=== PATIENT | female | born 1975 | race Caucasian/White ===

== ENCOUNTER 2019-11-06 11:06 | Inpatient (IN) | payer OTHER ==
[2019-11-06] MEDS ORDERED: ALBUTEROL NEBULIZED 2.5 MG/3 ML INHALATION STA ×2 (11:37→12:58)
[2019-11-06] MEDS ORDERED: methylPREDNISolone SOD SUCCI 125 MG/2 ML VIAL IM ONE (11:39)
--- NOTE | 2019-11-06 11:55 | ED ---
URI HPI - General Chief Complaint: Upper Respiratory Infection Stated Complaint: cough, SOB, breathing difficulties Time Seen by Provider: 11/06/19 11:21 Source: patient Mode of arrival: ambulatory Limitations: no limitations - History of Present Illness Initial Comments: 44-year-old female with history of asthma presents emergency department today for chief complaint of cough shortness of breath. Patient states that she has had cough and torsemide past 13 days. Patient states he does travel a lot for work however has not been to endemic areas such as [facility] or overseas. Patient denies recording fevers, vomiting, diarrhea, chest pain. Patient states she is SOB especially when walking or coughing. Patient denies any known Covid-19 exposures, sick contacts or + testing. Patient states she has been using her nebulized treatments and they do not seem to be working. When symptoms persisted patient saw primary care provider who sent patient to the ER for testing. Patient states she finished 5 days of Azithromycin 9 days ago as we ll as a steroid pack. No current antibiotics, or steroids. Patient upon arrival is not hypoxic, she has some auditory wheeze. Patient afebrile 99.4F. - Related Data Home Medications Medication Instructions Recorded Confirmed Albuterol Nebulized [Ventolin 2.5 mg INHALATION RT-Q8H PRN 11/06/19 11/06/19 Nebulized] Aspirin/Acetaminophen/Caffeine 1 tab PO Q8H PRN 11/06/19 11/06/19 [Excedrin Migraine Caplet] Menthol [Biofreeze] 1 applic TOPICAL DAILY PRN 11/06/19 11/06/19 Omeprazole Magnesium [PriLOSEC OTC] 20 mg PO HS 11/06/19 11/06/19 Allergies Allergy/AdvReac Type Severity Reaction Status Date / Time tuberculin, purified protein Allergy Rash/Hives Verified 11/06/19 12:49 deriva Review of Systems ROS Statement: Those systems with pertinent positive or pertinent negative responses have been documented in the HPI. ROS Other: All systems not noted in ROS Statement are negative. Past Medical History Past Medical History: Asthma History of Any Multi-Drug Resistant Organisms: None Reported Past Surgical History: Cholecystectomy Additional Past Surgical History / Comment(s): uterine ablation d & c Past Psychological History: Anxiety, Depression Smoking Status: Former smoker Past Alcohol Use History: None Reported Past Drug Use History: None Reported General Exam - General Exam Comments Initial Comments: General: The patient is awake and alert, in no distress Eye: +3 mm pupils are equal, round and reactive to light, extra-ocular movements are intact. No nystagmus. There is normal conjunctiva bilaterally. No signs of icterus. Ears, nose, mouth and throat: There are moist mucous membranes and no oral lesions. Oropharynx nonerythematous. Uvula midline. Neck memory is within normal limits bilaterally. Neck: The neck is supple, there is no tenderness or JVD. No nuchal rigidity. Cardiovascular: There is a regular rate and rhythm. No murmur, rub or gallop is appreciated. Respiratory: Lungs sounds are slightly diminished, respirations are non- labored, breath sounds are equal. Mild expiratory wheeze. No stridor, rales, or rhonchi. Gastrointestinal: [Soft, non-distended, non-tender abdomen without masses or organomegaly noted. There is no rebound or guarding present. Musculoskeletal: Normal ROM, no tenderness. Strength 5/5. Sensation intact. Pulses equal bilaterally 2+. Neurological: A&O x 3. CN II-XII intact grossly, There are no obvious motor or sensory deficits. Coordination appears grossly intact. Speech is normal. Skin: Skin is warm and dry and no rashes or lesions are noted. Psychiatric: Cooperative, appropriate mood & affect, normal judgment. Limitations: no limitations Course Vital Signs 11/06/19 11/06/19 11/06/19 11:16 11:50 11:56 Temperature 99.4 F Pulse Rate 85 86 82 Respiratory 20 20 Rate Blood Pressure 139/88 128/93 O2 Sat by Pulse 97 96 Oximetry 11/06/19 11/06/19 11/06/19 12:07 12:30 13:35 Temperature Pulse Rate 92 88 91 Respiratory 22 Rate Blood Pressure 109/85 O2 Sat by Pulse Oximetry 11/06/19 13:42 Temperature Pulse Rate 92 Respiratory Rate Blood Pressure O2 Sat by Pulse Oximetry Medical Decision Making - Medical Decision Making 44yo female presenting today for chief complaint of cough 2 weeks and SOB. Chest x-ray clear focal infiltrates. Patient is not hypoxic. Patient is an asthmatic and has persistent diminished lung sounds with mild extra wheezes after breathing treatments. Patient will be admitted for further breathing treatments. Cannot rule out Covid 19. After discussing case with Dr. Connolly he recommends admission, Dr. Michelle evaluated patient in the ER. Patient admitted in stable condition appearing well, improvement of lung sounds after second treatment. - Lab Data Result diagrams: 11/06/19 13:09 11/06/19 13:09 Lab Results 11/06/19 11/06/19 11/06/19 Range/Units 13:09 13:09 13:09 WBC 11.3 H (3.8-10.6) k/uL RBC 4.68 (3.80-5.40) m/uL Hgb 13.6 (11.4-16.0) gm/dL Hct 40.8 (34.0-46.0) % MCV 87.1 (80.0-100.0) fL MCH 29.0 (25.0-35.0) pg MCHC 33.3 (31.0-37.0) g/dL RDW 12.6 (11.5-15.5) % Plt Count 248 (150-450) k/uL Neutrophils % 78 % Lymphocytes % 17 % Monocytes % 3 % Eosinophils % 1 % Basophils % 0 % Neutrophils # 8.8 H (1.3-7.7) k/uL Lymphocytes # 1.9 (1.0-4.8) k/uL Monocytes # 0.3 (0-1.0) k/uL Eosinophils # 0.1 (0-0.7) k/uL Basophils # 0.0 (0-0.2) k/uL Sodium 137 (137-145) mmol/L Potassium 4.1 (3.5-5.1) mmol/L Chloride 106 (98-107) mmol/L Carbon Dioxide 22 (22-30) mmol/L Anion Gap 9 mmol/L BUN 15 (7-17) mg/dL Creatinine 0.67 (0.52-1.04) mg/dL Est GFR (CKD-EPI)AfAm >90 (>60 ml/min/1.73 sqM) Est GFR (CKD-EPI)NonAf >90 (>60 ml/min/1.73 sqM) Glucose 96 (74-99) mg/dL Plasma Lactic Acid Natan 1.8 (0.7-2.0) mmol/L Calcium 9.1 (8.4-10.2) mg/dL Total Bilirubin 0.8 (0.2-1.3) mg/dL AST 21 (14-36) U/L ALT 16 (4-34) U/L Alkaline Phosphatase 57 (38-126) U/L Total Protein 7.2 (6.3-8.2) g/dL Albumin 4.2 (3.5-5.0) g/dL - EKG Data EKG Comments: Ventricular rate 84 bpm, CO interval 172 ms, QRS rotation 80 ms, QT/QTC 384/53 ms. This is normal sinus there is no ST elevation or depression Disposition Clinical Impression: Cough, Dyspnea, Asthma exacerbation, Sore throat, Hx of fever Disposition: ADMITTED IP TO THIS HOSP Condition: Stable Is patient prescribed a controlled substance at d/c from ED?: No Time of Disposition: 13:32 Decision to Admit Reason: Admit from EC Decision Date: 11/06/19 Decision Time: 13:32
--- NOTE | 2019-11-06 12:36 | XR ---
EXAMINATION TYPE: XR chest 1V portable DATE OF EXAM: 11/06/2019 COMPARISON: Chest CT October 03, 2014. HISTORY: Cough and shortness of breath. TECHNIQUE: Single AP portable frontal upright view of the chest is obtained. FINDINGS: There is no new Suspicious focal air space opacity, pleural effusion, or pneumothorax see n. The cardiac silhouette size remains upper limits of normal. The osseous structures are intact. Cholecystectomy clips are redemonstrated. IMPRESSION: No new acute pulmonary process.
[2019-11-06] MEDS ORDERED: AZITHROMYCIN 500 MG in SODIUM CHLORIDE 0.9% 250 ML IVPB STA (12:58)
[2019-11-06] MEDS ORDERED: NALOXONE 0.4 MG/ML 1 ML VIAL IV PRN (13:29)
[2019-11-06] MEDS ORDERED: ALBUTEROL NEBULIZED 2.5 MG/3 ML INHALATION PRN (13:30)
[2019-11-06] MEDS ORDERED: MAGNESIUM SULFATE-D5W PMX 1 GM in DEXTROSE/WATER 1 100ML.BAG IVPB ONE (13:31)
[2019-11-06] MEDS: SODIUM CHLORIDE 0.9% 1,000 ML IV SCH (13:35)
[2019-11-06 14:03] LABS: Basophils % (A) 0 %; Eosinophils # (A) 0.1 k/uL (0-0.7); Eosinophils % (A) 1 %; HCT 40.8 % (34.0-46.0); HGB 13.6 gm/dL (11.4-16.0); Lymphocytes # (A) 1.9 k/uL (1.0-4.8); Lymphocytes % (A) 17 %; MCHC 33.3 g/dL (31.0-37.0); MCV 87.1 fL (80.0-100.0); Mean Platelet Volume 7.9; Monocytes # (A) 0.3 k/uL (0-1.0); Monocytes % (A) 3 %; Neutrophils # (A) 8.8 k/uL (1.3-7.7); Neutrophils % (A) 78 %; Platelet Count 248 k/uL (150-450); RBC 4.68 m/uL (3.80-5.40); RDW 12.6 % (11.5-15.5); WBC 11.3 k/uL (3.8-10.6)
[2019-11-06 14:18] LABS: ALT 16 U/L (4-34); AST 21 U/L (14-36); African American GFR (CKD) >90 (>60 ml/min/1.73 sqM); Albumin 4.2 g/dL (3.5-5.0); Alkaline Phosphatase 57 U/L (38-126); Anion Gap 9 mmol/L; Blood Urea Nitrogen 15 mg/dL (7-17); Calcium 9.1 mg/dL (8.4-10.2); Carbon Dioxide 22 mmol/L (22-30); Chloride 106 mmol/L (98-107); Glucose 96 mg/dL (74-99); Non-African American GFR(CKD) >90 (>60 ml/min/1.73 sqM); Potassium 4.1 mmol/L (3.5-5.1); Sodium 137 mmol/L (137-145); Total Bilirubin 0.8 mg/dL (0.2-1.3); Total Protein 7.2 g/dL (6.3-8.2)
[2019-11-06] MEDS ORDERED: Acetaminophen-Codeine 300-30mg TAB PO STA (17:18)
[2019-11-06] MEDS ORDERED: IPRATROPIUM-ALBUTEROL 3 ML NEB INHALATION PRN (22:46)
--- NOTE | 2019-11-06 23:03 | P.HPIM ---
History of Present Illness H&P Date: 11/06/19 Chief Complaint: Shortness of breath Patient is a 44-year-old female with a known history of asthma, GERD, osteoarthritis and previous history of smoking came to ER with the complaints of shortness of breath and cough. Patient was also having low-grade fever at home. Denied any chest pain. Patient was seen by her primary care doctor about a week ago and was given prednisone and azithromycin. Patient completed 5 days of azithromycin about 9 days ago. Patient is still having shortness of breath and was seen by her PCP, Dr. Malcolm via telemetry conference and recommended to go to ER due to worsening shortness of breath and not improving. Patient states he does travel a lot for work however has not been to endemic areas such as [facility] or overseas. Patient denies recording fevers, vomiting, diarrhea, chest pain. Patient states she is SOB especially when walking or coughing. Patient denies any known Covid-19 exposures, sick contacts or + testing. Patient states she has been using her nebulized treatments and they do not seem to be working. Patient traveled to [place] and [place] recently and came back home on 10/22/2019. Since then she has been having shortness of breath not improving. WBC 11.9, chest x-ray showed no acute pulmonary process. Other laboratory data within normal limits. T-max was 99.4 on admission. Saturating well on room air. Review of Systems Constitutional: Patient does have subjective fevers. No chills . No generalized weakness or weight loss. Abdomen: Patient denied nausea vomiting and diarrhea and abdominal pain. Cardiovascular: Patient denies any chest pain or short of breath no palpitations. Respiratory: Cough without sputum production and shortness of breath Neurologic: Patient denied any numbness or tingling headache. Musculoskeletal: Patient denies any complaints of joint swelling or deformity. Skin: Negative Psychiatric: Negative Endocrine: No heat or cold intolerance. No recent weight gain. Genitourinary: No dysuria or hematuria. All other 14 point ROS negative except the above Past Medical History Past Medical History: Asthma, GERD/Reflux, Osteoarthritis (OA), Pneumonia Additional Past Medical History / Comment(s): Bronchitis, migraines, arthritis in multiple joints, R hip "goes out", lumbar scoliosis, bursitis bilateral knees, IBS, R ear QUINAULT, endometriosis. History of Any Multi-Drug Resistant Organisms: None Reported Past Surgical History: Cholecystectomy, Uterine Ablation Additional Past Surgical History / Comment(s): D&C, colonoscopy Past Anesthesia/Blood Transfusion Reactions: No Reported Reaction Smoking Status: Former smoker - Past Family History Father Family Medical History: Dementia Mother Family Medical History: AFIB, Cancer Additional Family Medical History / Comment(s): Heart disease, cancerous cysts i n her breast. Sister(s) Family Medical History: Cancer Additional Family Medical History / Comment(s): 2 sisters with ovarian cancer. Medications and Allergies Home Medications Medication Instructions Recorded Confirmed Type Albuterol Nebulized [Ventolin 2.5 mg INHALATION RT-Q8H PRN 11/06/19 11/06/19 History Nebulized] Aspirin/Acetaminophen/Caffeine 1 tab PO Q8H PRN 11/06/19 11/06/19 History [Excedrin Migraine Caplet] Menthol [Biofreeze] 1 applic TOPICAL DAILY PRN 11/06/19 11/06/19 History Omeprazole Magnesium [PriLOSEC OTC] 20 mg PO HS 11/06/19 11/06/19 History Allergies Allergy/AdvReac Type Severity Reaction Status Date / Time tuberculin, purified protein Allergy Rash/Hives Verified 11/06/19 12:49 deriva Physical Exam Vitals: Vital Signs Temp Pulse Resp BP Pulse Ox 11/06/19 18:00 106 H 18 129/97 94 L 11/06/19 17:24 102 H 18 117/75 95 11/06/19 16:33 98.6 F 102 H 18 115/71 95 11/06/19 15:30 98 18 117/74 95 11/06/19 15:01 98.1 F 102 H 20 117/74 96 11/06/19 13:42 92 11/06/19 13:35 91 11/06/19 12:30 88 22 109/85 11/06/19 12:07 92 11/06/19 11:56 82 11/06/19 11:50 86 20 128/93 96 11/06/19 11:16 99.4 F 85 20 139/88 97 Intake and Output 11/06/19 11/06/19 11/06/19 06:59 14:59 22:59 Other: Weight 93.848 kg 93.848 kg PHYSICAL EXAMINATION: Patient is lying in the bed comfortably, no acute distress, awake alert and oriented.. HEENT: Normocephalic. Neck is supple. Pupils reactive. Nostrils clear. Oral cavity is moist. Ears reveal no drainage. Neck reveals no JVD, carotid bruits, or thyromegaly. CHEST EXAMINATION: Trachea is central. Symmetrical expansion. Bilateral diminished air entry and wheezing. CARDIAC: Normal S1, S2 with no gallops. No murmurs ABDOMEN: Soft. Bowel sounds normal. No organomegaly. No abdominal bruits. Extremities: reveal no edema. No clubbing or cyanosis Neurologically awake, alert, oriented x3 with well-coordinated movements. No focal deficits noted Skin: No rash or skin lesions. Psychiatric: Coperative. Nonsuicidal Musculoskeletal: No joint swelling or deformity. Normal range of motion. Results CBC & Chem 7: 11/06/19 13:09 11/06/19 13:09 Labs: Abnormal Lab Results - Last 24 Hours (Table) 11/06/19 Range/Units 13:09 WBC 11.3 H (3.8-10.6) k/uL Neutrophils # 8.8 H (1.3-7.7) k/uL Thrombosis Risk Factor Assmnt - DVT/VTE Prophylaxis DVT/VTE Prophylaxis: Pharmacologic Prophylaxis ordered - Choose All That Apply Any of the Below Risk Factors Present?: Yes Each Factor Represents 1 point: Age 41-60 years, Obesity (BMI >25) Other Risk Factors: No Other congenital or acquired thrombophilia - If yes, enter type in comment: No Thrombosis Risk Factor Assessment Total Risk Factor Score: 2 Thrombosis Risk Factor Assessment Level: Low Risk Assessment and Plan Assessment: Shortness of breath secondary to acute asthma exacerbation Failed outpatient antibiotic therapy and steroid course. GERD. Continue PPI. Osteoarthritis History of cholecystectomy and uterine ablation Previous history of smoking DVT prophylaxis with heparin subcu Plan: Patient will be continued on IV steroids, DuoNeb's and we will add Pulmicort inhalation twice a day. Patient was given a dose of azithromycin in the ER. will send swab for influenza PCR, if negative will consider Coreg 19 RT-PCR due to history of recent travel to multiple states. continue with droplet and contact precautions at this time. Further recommendations based on the clinical course. Time with Patient: Greater than 30
[2019-11-07] MEDS: PANTOPRAZOLE 40 MG TABLET PO SCH ×2 (00:01→21:34)
[2019-11-07] MEDS: methylPREDNISolone SOD SUCCI 125 MG/2 ML VIAL IV SCH ×4 (00:01→17:40)
[2019-11-07] MEDS: HEPARIN SODIUM,PORCINE 5,000 UNIT/ML 1 ML VIAL SQ SCH ×3 (00:03→15:17)
[2019-11-07] MEDS: SODIUM CHLORIDE 0.9% 1,000 ML IV SCH ×2 (05:59→21:34)
[2019-11-07] MEDS ORDERED: ASPIRIN-ACET-CAFF 250-250-65MG 1 EACH TAB PO STA (07:36)
[2019-11-07] MEDS ORDERED: BUDESONIDE 0.5 MG/2 ML NEBU INHALATION SCH (08:00)
--- NOTE | 2019-11-07 08:10 | XR ---
EXAMINATION TYPE: XR chest 1V DATE OF EXAM: 11/07/2019 COMPARISON: 11/06/2019 HISTORY: 44-year-old female shortness of breath TECHNIQUE: Single frontal view of the chest is obtained. FINDINGS: Heart upper limits of normal in size, likely technical due to AP portable technique. Hazy densities r elated to overlying soft tissue and underpenetration from portable technique. No consolidation or ple ural effusion. IMPRESSION: No acute process.
[2019-11-07] MEDS: ALBUTEROL INHALER 60 PUFF/8 GM INHALER (MHU) INHALATION PRN ×2 (12:14→19:59)
[2019-11-07] MEDS: Acetaminophen-Codeine 300-30mg TAB PO PRN (12:16)
[2019-11-07] MEDS: FLUTICASONE 110 MCG INHALER (MHU) INHALATION SCH (19:59)
--- NOTE | 2019-11-07 22:39 | P.PN ---
Subjective Progress Note Date: 11/07/19 Principal diagnosis: Acute asthma exacerbation Patient is a 44-year-old female with a known history of asthma, GERD, osteoarthritis and previous history of smoking came to ER with the complaints of shortness of breath and cough. Patient was also having low-grade fever at home. Denied any chest pain. Patient was seen by her primary care doctor about a week ago and was given prednisone and azithromycin. Patient completed 5 days of azithromycin about 9 days ago. Patient is still having shortness of breath and was seen by her PCP, Dr. Malcolm via telemetry conference and recommended to go to ER due to worsening shortness of breath and not improving. Patient states he does travel a lot for work however has not been to endemic areas such as [facility] or overseas. Patient denies recording fevers, vomiting, diarrhea, chest pain. Patient states she is SOB especially when walking or coughing. Patient denies any known Covid-19 exposures, sick contacts or + testing. Patient states she has been using her nebulized treatments and they do not seem to be working. Patient traveled to [place] and [place] recently and came back home on 10/22/2019. Since then she has been having shortness of breath not improving. WBC 11.9, chest x-ray showed no acute pulmonary process. Other laboratory data within normal limits. T-max was 99.4 on admission. Saturating well on room air. 11/07/2019 Patient is still complaining of cough. Shortness of breath did improve with breathing treatments and inhaler today afternoon. Does have exertional dyspnea and wheezing on examination. Patient has been afebrile otherwise. Repeat chest x-ray showed no acute cardiopulmonary process. Influenza a and B-. Covid 19 PCR was sent due to travel history of multiple states. Denied any chest pain. No nausea vomiting or diarrhea. Tolerating oral diet. Patient is being continued on droplet and contact precautions. Current medications reviewed. Objective - Vital Signs Vital signs: Vital Signs Temp 98.4 F 11/07/19 11:05 Pulse 97 11/07/19 11:05 Resp 22 11/07/19 11:05 BP 109/62 11/07/19 11:05 Pulse Ox 96 11/07/19 11:05 Intake & Output 11/06/19 11/07/19 11/07/19 18:59 06:59 18:59 Intake Total 500 240 Balance 500 240 Weight 93.848 kg 93.9 kg Intake: Oral 500 240 Other: # Voids 4 - Exam PHYSICAL EXAMINATION: Patient is lying in the bed comfortably, appears to be in mild distress, awake alert and oriented.. HEENT: Normocephalic. Neck is supple. Pupils reactive. Nostrils clear. Oral cavity is moist. Ears reveal no drainage. Neck reveals no JVD, carotid bruits, or thyromegaly. CHEST EXAMINATION: Trachea is central. Symmetrical expansion. Bilateral diffuse wheezing and scattered rhonchi. Air entry improved bilaterally. CARDIAC: Normal S1, S2 with no gallops. No murmurs ABDOMEN: Soft. Bowel sounds normal. No organomegaly. No abdominal bruits. Extremities: reveal no edema. No clubbing or cyanosis Neurologically awake, alert, oriented x3 with well-coordinated movements. No focal deficits noted Skin: No rash or skin lesions. Psychiatric: Coperative. Nonsuicidal Musculoskeletal: No joint swelling or deformity. Normal range of motion. - Labs CBC & Chem 7: 11/06/19 13:09 11/06/19 13:09 Labs: Abnormal Lab Results - Last 24 Hours (Table) 11/06/19 Range/Units 13:09 WBC 11.3 H (3.8-10.6) k/uL Neutrophils # 8.8 H (1.3-7.7) k/uL Assessment and Plan Assessment: Shortness of breath secondary to acute asthma exacerbation Failed outpatient antibiotic therapy and steroid course. GERD. Continue PPI. Osteoarthritis History of cholecystectomy and uterine ablation Previous history of smoking DVT prophylaxis with heparin subcu Plan: Patient will be continued on IV steroids, DuoNeb's and we will add Pulmicort inhalation twice a day. Patient was given a dose of azithromycin in the ER. Continue for 3 days. Influenza A/B-. Covidg 19 RT-PCR was sent due to history of recent travel to multiple states. continue with droplet and contact precautions at this time. Further recommendations based on the clinical course. Time with Patient: Greater than 30
[2019-11-08] MEDS: HEPARIN SODIUM,PORCINE 5,000 UNIT/ML 1 ML VIAL SQ SCH ×4 (01:37→23:38)
[2019-11-08] MEDS: methylPREDNISolone SOD SUCCI 125 MG/2 ML VIAL IV SCH ×5 (05:41→23:33)
[2019-11-08 06:43] LABS: Basophils % (A) 0 %; Eosinophils % (A) 0 %; HGB 12.4 gm/dL (11.4-16.0); Lymphocytes % (A) 5 %; MCH 28.2 pg (25.0-35.0); MCHC 31.8 g/dL (31.0-37.0); MCV 88.7 fL (80.0-100.0); Mean Platelet Volume 7.8; Monocytes # (A) 0.4 k/uL (0-1.0); Monocytes % (A) 2 %; Neutrophils % (A) 93 %; Platelet Count 267 k/uL (150-450); RDW 12.8 % (11.5-15.5); WBC 19.5 k/uL (3.8-10.6)
[2019-11-08 06:56] LABS: African American GFR (CKD) >90 (>60 ml/min/1.73 sqM); Anion Gap 8 mmol/L; Blood Urea Nitrogen 14 mg/dL (7-17); Calcium 8.8 mg/dL (8.4-10.2); Carbon Dioxide 21 mmol/L (22-30); Chloride 108 mmol/L (98-107); Glucose 146 mg/dL (74-99); Non-African American GFR(CKD) >90 (>60 ml/min/1.73 sqM); Potassium 4.5 mmol/L (3.5-5.1); Sodium 137 mmol/L (137-145)
[2019-11-08] MEDS: Acetaminophen-Codeine 300-30mg TAB PO PRN (08:52)
[2019-11-08] MEDS: ALBUTEROL INHALER 60 PUFF/8 GM INHALER (MHU) INHALATION PRN ×3 (09:38→19:57)
[2019-11-08] MEDS: FLUTICASONE 110 MCG INHALER (MHU) INHALATION SCH ×2 (09:39→19:58)
--- NOTE | 2019-11-08 12:58 | CDI ---
Documentation Clarification Form Date: 11/08/2019 12:32:52 PM From: Evy Damon RN,CCDS Admit Date: 11/06/2019 01:33:00 PM Patient Name: Melani Dooley Visit Number: [id number] Discharge Date: ATTENTION: The Clinical Documentation Specialists (CDI) and [facility] Coding Staff appreciate your assistance in clarifying documentation. Please respond to the clarification below the line at the bottom and electronically sign. The CDI & [facility] Coding staff will review the response and follow-up if needed. Please note: Queries are made part of the Legal Health Record. If you have any questions, please contact the author of this message via ITS. Dr. Ryan Michelle Asthma is documented in the ED,H&P and subsequent progress notes, and further specificity is requested for type/severity of asthma if known. History/risk factors: Asthma Clinical Indicators: 44-year-old female present to ED on 11/05 with complaints of shortness of breath, cough, sore throat, and history of multiple state travel. She had finished 5 days of Azithromycin and 9 days ago a steroid pack per ED evaluation. She had auditory wheeze and initial temp 99.4. ED notes patient is not hypoxic. 11/05 Vital signs on admission: 139/88 85 20 99.4 97 % RA 11/05 Chest x-ray: clear no focal infiltrates 11/05 Blood cultures: Pending Treatment: COVID 19: Pending Ventolin In haler 2 puff QID/PRN Zithromax 500 mg PO Q 24 hrs Solu-Medrol 60 mg IV Q6 hrs .9 Saline @50 mls/hr In your professional opinion, can you please further specify the following, if known? Acute Asthma exacerbation (specify severity, with any of the following) Acute lower respiratory infection COPD (specify with or without exacerbation) Chronic obstructive bronchitis Other, please specify Unable to determine Severity Mild intermittent Mild persistent Moderate persistent Severe persistent Other, please specify ____ Unable to determine Form or Type Cough variant Childhood Exercise induced bronchospasm Extrinsic allergic Idiosyncratic Intrinsic nonallergic Late-onset Mixed Other, please specify____ Unable to determine (Last Revision: November 2017) Severe persistent asthma with exacerbation MTDD
[2019-11-08] MEDS: guaiFENesin SYRUP 100MG/5ML 200 MG/10 ML CUP PO PRN ×2 (16:56→23:33)
[2019-11-08] MEDS: HYDROcodone/APAP 5-325MG 1 EACH TAB PO PRN (16:56)
[2019-11-08] MEDS: PANTOPRAZOLE 40 MG TABLET PO SCH (20:19)
[2019-11-08] MEDS: SODIUM CHLORIDE 0.9% 1,000 ML IV SCH (20:20)
[2019-11-08] MEDS: AZITHROMYCIN 500 MG TAB PO SCH ×2 (23:33)
[2019-11-09 06:22] LABS: Glucose,Whole Blood 136 mg/dL (75-99)
[2019-11-09] MEDS: methylPREDNISolone SOD SUCCI 125 MG/2 ML VIAL IV SCH ×3 (06:33→17:20)
[2019-11-09] MEDS: guaiFENesin SYRUP 100MG/5ML 200 MG/10 ML CUP PO PRN (06:37)
[2019-11-09] MEDS: INSULIN ASPART (NovoLOG) 100 UNIT/ML VIAL SQ SCH ×4 (06:38→20:48)
[2019-11-09 06:56] LABS: Basophils % (A) 0 %; Eosinophils # (A) 0.1 k/uL (0-0.7); Eosinophils % (A) 1 %; HCT 39.1 % (34.0-46.0); HGB 12.6 gm/dL (11.4-16.0); Lymphocytes # (A) 0.7 k/uL (1.0-4.8); Lymphocytes % (A) 6 %; MCH 28.4 pg (25.0-35.0); MCHC 32.3 g/dL (31.0-37.0); Mean Platelet Volume 8.2; Monocytes # (A) 0.2 k/uL (0-1.0); Monocytes % (A) 2 %; Neutrophils # (A) 10.9 k/uL (1.3-7.7); Neutrophils % (A) 92 %; Platelet Count 244 k/uL (150-450); RBC 4.44 m/uL (3.80-5.40); RDW 12.6 % (11.5-15.5); WBC 11.9 k/uL (3.8-10.6)
[2019-11-09 07:09] LABS: African American GFR (CKD) >90 (>60 ml/min/1.73 sqM); Anion Gap 4 mmol/L; Blood Urea Nitrogen 17 mg/dL (7-17); Calcium 8.7 mg/dL (8.4-10.2); Carbon Dioxide 26 mmol/L (22-30); Chloride 106 mmol/L (98-107); Glucose 144 mg/dL (74-99); Non-African American GFR(CKD) >90 (>60 ml/min/1.73 sqM); Potassium 4.4 mmol/L (3.5-5.1); Sodium 136 mmol/L (137-145)
[2019-11-09] MEDS: FLUTICASONE 110 MCG INHALER (MHU) INHALATION SCH ×2 (08:00→19:13)
[2019-11-09] MEDS: ALBUTEROL INHALER 60 PUFF/8 GM INHALER (MHU) INHALATION PRN ×3 (08:00→19:13)
[2019-11-09] MEDS: HEPARIN SODIUM,PORCINE 5,000 UNIT/ML 1 ML VIAL SQ SCH ×2 (11:18→16:11)
[2019-11-09] MEDS: HYDROcodone/APAP 5-325MG 1 EACH TAB PO PRN ×2 (11:26→17:20)
[2019-11-09] MEDS: SODIUM CHLORIDE 0.9% 1,000 ML IV SCH (11:26)
[2019-11-09 12:10] LABS: Glucose,Whole Blood 124 mg/dL (75-99)
[2019-11-09] MEDS ORDERED: IPRATROPIUM-ALBUTEROL 3 ML NEB INHALATION PRN (14:39)
[2019-11-09 16:43] LABS: Glucose,Whole Blood 158 mg/dL (75-99)
[2019-11-09 20:45] LABS: Glucose,Whole Blood 125 mg/dL (75-99)
[2019-11-09] MEDS: PANTOPRAZOLE 40 MG TABLET PO SCH (20:57)
[2019-11-09] MEDS: AZITHROMYCIN 500 MG TAB PO SCH (20:57)
--- NOTE | 2019-11-09 23:11 | P.PN ---
Subjective Progress Note Date: 11/08/19 Principal diagnosis: Acute asthma exacerbation Patient is a 44-year-old female with a known history of asthma, GERD, osteoarthritis and previous history of smoking came to ER with the complaints of shortness of breath and cough. Patient was also having low-grade fever at home. Denied any chest pain. Patient was seen by her primary care doctor about a week ago and was given prednisone and azithromycin. Patient completed 5 days of azithromycin about 9 days ago. Patient is still having shortness of breath and was seen by her PCP, Dr. Malcolm via telemetry conference and recommended to go to ER due to worsening shortness of breath and not improving. Patient states he does travel a lot for work however has not been to endemic areas such as [facility] or overseas. Patient denies recording fevers, vomiting, diarrhea, chest pain. Patient states she is SOB especially when walking or coughing. Patient denies any known Covid-19 exposures, sick contacts or + testing. Patient states she has been using her nebulized treatments and they do not seem to be working. Patient traveled to [place] and [place] recently and came back home on 10/22/2019. Since then she has been having shortness of breath not improving. WBC 11.9, chest x-ray showed no acute pulmonary process. Other laboratory data within normal limits. T-max was 99.4 on admission. Saturating well on room air. 11/07/2019 Patient is still complaining of cough. Shortness of breath did improve with breathing treatments and inhaler today afternoon. Does have exertional dyspnea and wheezing on examination. Patient has been afebrile otherwise. Repeat chest x-ray showed no acute cardiopulmonary process. Influenza a and B-. Covid 19 PCR was sent due to travel history of multiple states. Denied any chest pain. No nausea vomiting or diarrhea. Tolerating oral diet. Patient is being continued on droplet and contact precautions. 11/08/2019 Patient is still complaining of shortness of breath and exertional dyspnea. No wheezing on examination. Patient has been afebrile. WBC count is 19.5 likely steroids contributing. Patient denied any complaints of chest pain. No nausea vomiting or diarrhea. Patient is being continued on droplet and contact precautions. Current medications reviewed. Objective - Vital Signs Vital signs: Vital Signs Temp 98.6 F 11/08/19 11:48 Pulse 70 03/26/20 11:48 Resp 14 11/08/19 11:48 BP 119/67 11/08/19 11:48 Pulse Ox 97 11/08/19 11:48 Intake & Output 11/07/19 11/08/19 11/08/19 18:59 06:59 18:59 Intake Total 1330 780 360 Output Total 1 Balance 1330 780 359 Weight 93 kg Intake: Oral 1330 780 360 Output: Urine 1 Other: # Voids 2 2 1 # Bowel Movements 0 - Exam PHYSICAL EXAMINATION: Patient is lying in the bed comfortably, appears to be in mild distress, awake alert and oriented.. HEENT: Normocephalic. Neck is supple. Pupils reactive. Nostrils clear. Oral cavity is moist. Ears reveal no drainage. Neck reveals no JVD, carotid bruits, or thyromegaly. CHEST EXAMINATION: Trachea is central. Symmetrical expansion. Bilateral diffuse wheezing and scattered rhonchi. Air entry improved bilaterally. CARDIAC: Normal S1, S2 with no gallops. No murmurs ABDOMEN: Soft. Bowel sounds normal. No organomegaly. No abdominal bruits. Extremities: reveal no edema. No clubbing or cyanosis Neurologically awake, alert, oriented x3 with well-coordinated movements. No focal deficits noted Skin: No rash or skin lesions. Psychiatric: Coperative. Nonsuicidal Musculoskeletal: No joint swelling or deformity. Normal range of motion. - Labs CBC & Chem 7: 11/09/19 06:21 11/09/19 06:21 Labs: Abnormal Lab Results - Last 24 Hours (Table) 11/08/19 11/08/19 Range/Units 05:58 05:58 WBC 19.5 H (3.8-10.6) k/uL Neutrophils # 18.0 H (1.3-7.7) k/uL Chloride 108 H (98-107) mmol/L Carbon Dioxide 21 L (22-30) mmol/L Glucose 146 H (74-99) mg/dL Microbiology - Last 24 Hours (Table) 11/06/19 13:09 Blood Culture - Preliminary Blood No Growth after 24 hours Assessment and Plan Assessment: Shortness of breath secondary to acute asthma exacerbation Failed outpatient antibiotic therapy and steroid course. GERD. Continue PPI. Osteoarthritis History of cholecystectomy and uterine ablation Previous history of smoking DVT prophylaxis with heparin subcu Plan: Patient will be continued on IV steroids, DuoNeb's and we will add Pulmicort inhalation twice a day. Patient was given a dose of azithromycin in the ER. Continue for 3 days. Influenza A/B-. Covidg 19 RT-PCR was sent due to history of recent travel to multiple [place]. continue with droplet and contact precautions at this time. Further recommendations based on the clinical course. Time with Patient: Greater than 30
--- NOTE | 2019-11-09 23:14 | P.PN ---
Subjective Progress Note Date: 11/09/19 Principal diagnosis: Acute asthma exacerbation Patient is a 44-year-old female with a known history of asthma, GERD, osteoarthritis and previous history of smoking came to ER with the complaints of shortness of breath and cough. Patient was also having low-grade fever at home. Denied any chest pain. Patient was seen by her primary care doctor about a week ago and was given prednisone and azithromycin. Patient completed 5 days of azithromycin about 9 days ago. Patient is still having shortness of breath and was seen by her PCP, Dr. Malcolm via telemetry conference and recommended to go to ER due to worsening shortness of breath and not improving. Patient states he does travel a lot for work however has not been to endemic areas such as [facility] or overseas. Patient denies recording fevers, vomiting, diarrhea, chest pain. Patient states she is SOB especially when walking or coughing. Patient denies any known Covid-19 exposures, sick contacts or + testing. Patient states she has been using her nebulized treatments and they do not seem to be working. Patient traveled to [place] and [place] recently and came back home on 10/22/2019. Since then she has been having shortness of breath not improving. WBC 11.9, chest x-ray showed no acute pulmonary process. Other laboratory data within normal limits. T-max was 99.4 on admission. Saturating well on room air. 11/07/2019 Patient is still complaining of cough. Shortness of breath did improve with breathing treatments and inhaler today afternoon. Does have exertional dyspnea and wheezing on examination. Patient has been afebrile otherwise. Repeat chest x-ray showed no acute cardiopulmonary process. Influenza a and B-. Covid 19 PCR was sent due to travel history of [place] states. Denied any chest pain. No nausea vomiting or diarrhea. Tolerating oral diet. Patient is being continued on droplet and contact precautions. 11/08/2019 Patient is still complaining of shortness of breath and exertional dyspnea. No wheezing on examination. Patient has been afebrile. WBC count is 19.5 likely steroids contributing. Patient denied any complaints of chest pain. No nausea vomiting or diarrhea. Patient is being continued on droplet and contact precautions. 11/09 2019 Patient is still having significant cough and shortness of breath. No fever. WBC count came down to 11.9 today. No complaints of chest pain. Still feeling weak and lethargic. Able to tolerate oral diet. Currently being continued on antibiotics, DuoNeb's and albuterol inhalers. Covid 19 PCR is still pending. Current medications reviewed. Objective - Vital Signs Vital signs: Vital Signs Temp 98.3 F 11/09/19 04:00 Pulse 72 11/09/19 04:00 Resp 16 11/09/19 04:00 BP 136/83 11/09/19 04:00 Pulse Ox 97 11/09/19 04:00 Intake & Output 11/08/19 11/09/19 11/09/19 18:59 06:59 18:59 Intake Total 600 450 240 Output Total 1 Balance 599 450 240 Weight 97.5 kg Intake: IV 450 Sodium Chloride 0.9% 1, 450 000 ml @ 50 mls/hr IV . Q20H JOHNNIE Rx#:[id number] Oral 600 240 Output: Urine 1 Other: # Voids 1 1 # Bowel Movements 0 - Exam PHYSICAL EXAMINATION: Patient is lying in the bed comfortably, appears to be in mild distress, awake alert and oriented.. HEENT: Normocephalic. Neck is supple. Pupils reactive. Nostrils clear. Oral cavity is moist. Ears reveal no drainage. Neck reveals no JVD, carotid bruits, or thyromegaly. CHEST EXAMINATION: Trachea is central. Symmetrical expansion. Bilateral diffuse wheezing and scattered rhonchi. Air entry improved bilaterally. CARDIAC: Normal S1, S2 with no gallops. No murmurs ABDOMEN: Soft. Bowel sounds normal. No organomegaly. No abdominal bruits. Extremities: reveal no edema. No clubbing or cyanosis Neurologically awake, alert, oriented x3 with well-coordinated movements. No focal deficits noted Skin: No rash or skin lesions. Psychiatric: Coperative. Nonsuicidal Musculoskeletal: No joint swelling or deformity. Normal range of motion. - Labs CBC & Chem 7: 11/09/19 06:21 11/09/19 06:21 Labs: Abnormal Lab Results - Last 24 Hours (Table) 11/09/19 11/09/19 11/09/19 Range/Units 06:19 06:21 06:21 WBC 11.9 H (3.8-10.6) k/uL Neutrophils # 10.9 H (1.3-7.7) k/uL Lymphocytes # 0.7 L (1.0-4.8) k/uL Sodium 136 L (137-145) mmol/L Glucose 144 H (74-99) mg/dL POC Glucose (mg/dL) 136 H (75-99) mg/dL 11/09/19 Range/Units 12:02 WBC (3.8-10.6) k/uL Neutrophils # (1.3-7.7) k/uL Lymphocytes # (1.0-4.8) k/uL Sodium (137-145) mmol/L Glucose (74-99) mg/dL POC Glucose (mg/dL) 124 H (75-99) mg/dL Microbiology - Last 24 Hours (Table) 11/06/19 13:09 Blood Culture - Preliminary Blood No Growth after 48 hours Assessment and Plan Assessment: Shortness of breath secondary to acute asthma exacerbation Failed outpatient antibiotic therapy and steroid course. Suspected covid 19 viral infection GERD. Continue PPI. Osteoarthritis History of cholecystectomy and uterine ablation Previous history of smoking DVT prophylaxis with heparin subcu Plan: Patient will be continued on IV steroids, DuoNeb's and Pulmicort inhalation twice a day. Patient was given a dose of azithromycin in the ER. Continue for 3 days. Influenza A/B-. Covidg 19 RT-PCR was sent due to history of recent travel to [place]. continue with droplet and contact precautions at this time. Further recommendations based on the clinical course. Time with Patient: Greater than 30
[2019-11-10] MEDS: SENNOSIDES 8.6 MG TAB PO SCH ×2 (00:25→20:56)
[2019-11-10] MEDS: methylPREDNISolone SOD SUCCI 125 MG/2 ML VIAL IV SCH ×5 (00:26→23:25)
[2019-11-10] MEDS: HEPARIN SODIUM,PORCINE 5,000 UNIT/ML 1 ML VIAL SQ SCH ×4 (00:27→23:39)
[2019-11-10 06:06] LABS: Glucose,Whole Blood 146 mg/dL (75-99)
[2019-11-10] MEDS: INSULIN ASPART (NovoLOG) 100 UNIT/ML VIAL SQ SCH ×4 (07:20→20:50)
[2019-11-10] MEDS: ALBUTEROL INHALER 60 PUFF/8 GM INHALER (MHU) INHALATION PRN ×4 (08:10→20:52)
[2019-11-10] MEDS: FLUTICASONE 110 MCG INHALER (MHU) INHALATION SCH ×2 (08:41→20:52)
[2019-11-10] MEDS: Acetaminophen-Codeine 300-30mg TAB PO PRN (11:28)
[2019-11-10 11:50] LABS: Glucose,Whole Blood 128 mg/dL (75-99)
[2019-11-10 13:19] VITALS: RESP 18
[2019-11-10 17:02] LABS: Glucose,Whole Blood 134 mg/dL (75-99)
[2019-11-10 20:04] LABS: Glucose,Whole Blood 189 mg/dL (75-99)
[2019-11-10] MEDS: PANTOPRAZOLE 40 MG TABLET PO SCH (20:56)
[2019-11-10] MEDS: AZITHROMYCIN 500 MG TAB PO SCH (23:29)
[2019-11-11 06:25] LABS: Glucose,Whole Blood 147 mg/dL (75-99)
[2019-11-11] MEDS: INSULIN ASPART (NovoLOG) 100 UNIT/ML VIAL SQ SCH ×2 (06:35→12:29)
[2019-11-11] MEDS: methylPREDNISolone SOD SUCCI 125 MG/2 ML VIAL IV SCH ×2 (06:35→12:34)
[2019-11-11] MEDS: ALBUTEROL INHALER 60 PUFF/8 GM INHALER (MHU) INHALATION PRN ×3 (07:26→15:11)
[2019-11-11] MEDS: FLUTICASONE 110 MCG INHALER (MHU) INHALATION SCH (07:27)
[2019-11-11] MEDS: HEPARIN SODIUM,PORCINE 5,000 UNIT/ML 1 ML VIAL SQ SCH (09:36)
[2019-11-11 11:09] VITALS: BP 110/72; PULSE 80; TEMP 98.3
[2019-11-11 12:02] LABS: Glucose,Whole Blood 138 mg/dL (75-99)
[2019-11-11] MEDS ORDERED: predniSONE 20 MG TAB PO SCH (14:30)
--- NOTE | 2019-11-21 00:21 | P.PN ---
Subjective Progress Note Date: 11/10/19 Principal diagnosis: Acute asthma exacerbation Patient is a 44-year-old female with a known history of asthma, GERD, osteoarthritis and previous history of smoking came to ER with the complaints of shortness of breath and cough. Patient was also having low-grade fever at home. Denied any chest pain. Patient was seen by her primary care doctor about a week ago and was given prednisone and azithromycin. Patient completed 5 days of azithromycin about 9 days ago. Patient is still having shortness of breath and was seen by her PCP, Dr. Malcolm via telemetry conference and recommended to go to ER due to worsening shortness of breath and not improving. Patient states he does travel a lot for work however has not been to endemic areas such as [facility] or overseas. Patient denies recording fevers, vomiting, diarrhea, chest pain. Patient states she is SOB especially when walking or coughing. Patient denies any known Covid-19 exposures, sick contacts or + testing. Patient states she has been using her nebulized treatments and they do not seem to be working. Patient traveled to [place] and [place] recently and came back home on 10/22/2019. Since then she has been having shortness of breath not improving. WBC 11.9, chest x-ray showed no acute pulmonary process. Other laboratory data within normal limits. T-max was 99.4 on admission. Saturating well on room air. 11/07/2019 Patient is still complaining of cough. Shortness of breath did improve with breathing treatments and inhaler today afternoon. Does have exertional dyspnea and wheezing on examination. Patient has been afebrile otherwise. Repeat chest x-ray showed no acute cardiopulmonary process. Influenza a and B-. Covid 19 PCR was sent due to travel history of [place]. Denied any chest pain. No nausea vomiting or diarrhea. Tolerating oral diet. Patient is being continued on droplet and contact precautions. 11/08/2019 Patient is still complaining of shortness of breath and exertional dyspnea. No wheezing on examination. Patient has been afebrile. WBC count is 19.5 likely steroids contributing. Patient denied any complaints of chest pain. No nausea vomiting or diarrhea. Patient is being continued on droplet and contact precautions. 11/09 2019 Patient is still having significant cough and shortness of breath. No fever. WBC count came down to 11.9 today. No complaints of chest pain. Still feeling weak and lethargic. Able to tolerate oral diet. Currently being continued on antibiotics, DuoNeb's and albuterol inhalers. Covid 19 PCR is still pending. 11/10/2019 Patient is having exertional dyspnea and shortness of breath. Patient still feels generally weak and otherwise no complaints of headache or dizziness. Currently being continued on antibiotics DuoNeb's and albuterol inhalers. Covid 19 is negative. Anticipate discharge in next 24 hours. Current medications reviewed. Objective - Vital Signs Vital signs: Vital Signs Temp 98.3 F 11/11/19 07:40 Pulse 80 11/11/19 07:40 Resp 18 11/11/19 07:40 BP 110/72 11/11/19 07:40 Pulse Ox 95 11/11/19 07:40 Intake & Output 11/10/19 11/11/19 11/11/19 18:59 06:59 18:59 Intake Total 1560 240 Balance 1560 240 Intake: Oral 1560 240 Other: # Voids 1 - Exam PHYSICAL EXAMINATION: Patient is lying in the bed comfortably, appears to be in mild distress, awake alert and oriented.. HEENT: Normocephalic. Neck is supple. Pupils reactive. Nostrils clear. Oral cavity is moist. Ears reveal no drainage. Neck reveals no JVD, carotid bruits, or thyromegaly. CHEST EXAMINATION: Trachea is central. Symmetrical expansion. Expiratory wheezing and scattered rhonchi. Air entry improved bilaterally. CARDIAC: Normal S1, S2 with no gallops. No murmurs ABDOMEN: Soft. Bowel sounds normal. No organomegaly. No abdominal bruits. Extremities: reveal no edema. No clubbing or cyanosis Neurologically awake, alert, oriented x3 with well-coordinated movements. No focal deficits noted Skin: No rash or skin lesions. Psychiatric: Coperative. Nonsuicidal Musculoskeletal: No joint swelling or deformity. Normal range of motion. - Labs CBC & Chem 7: 11/09/19 06:21 11/09/19 06:21 Labs: Abnormal Lab Results - Last 24 Hours (Table) 11/10/19 11/10/19 11/11/19 Range/Units 17:00 20:03 06:24 POC Glucose (mg/dL) 134 H 189 H 147 H (75-99) mg/dL 11/11/19 Range/Units 12:01 POC Glucose (mg/dL) 138 H (75-99) mg/dL Microbiology - Last 24 Hours (Table) 11/06/19 13:09 Blood Culture - Preliminary Blood No Growth after 96 hours Assessment and Plan Assessment: Shortness of breath secondary to acute asthma exacerbation Failed outpatient antibiotic therapy and steroid course. Suspected covid 19 viral infection. Negative. GERD. Continue PPI. Osteoarthritis History of cholecystectomy and uterine ablation Previous history of smoking DVT prophylaxis with heparin subcu Plan: Patient will be continued on IV steroids, DuoNeb's and Pulmicort inhalation twice a day. Patient was given a dose of azithromycin in the ER. Continue for 3 days. Influenza A/B-. Covidg 19 RT-PCR was sent due to history of recent travel to [place]. Covid test is negative. continue with droplet and contact precautions at this time. Further recommendations based on the clinical course. Time with Patient: Greater than 30
--- NOTE | 2019-11-21 00:23 | P.DS ---
Providers Date of admission: 11/06/19 13:33 Expected date of discharge: 11/11/19 Attending physician: Ryan Michelle Primary care physician: Michelle Malcolm [facility] Course: Discharge diagnosis Shortness of breath secondary to acute asthma exacerbation Failed outpatient antibiotic therapy and steroid course. Suspected covid 19 viral infection. Negative. GERD. Continue PPI. Osteoarthritis History of cholecystectomy and uterine ablation Previous history of smoking DVT prophylaxis with heparin subcu Hospital course Patient is a 44-year-old female with a known history of asthma, GERD, osteoarthritis and previous history of smoking came to ER with the complaints of shortness of breath and cough. Patient was also having low-grade fever at home. Denied any chest pain. Patient was seen by her primary care doctor about a week ago and was given prednisone and azithromycin. Patient completed 5 days of azithromycin about 9 days ago. Patient is still having shortness of breath and was seen by her PCP, Dr. Malcolm via telemetry conference and recommended to go to ER due to worsening shortness of breath and not improving. Patient states he does travel a lot for work however has not been to endemic areas such as [facility] or overseas. Patient denies recording fevers, vomiting, diarrhea, chest pain. Patient states she is SOB especially when walking or coughing. Patient denies any known Covid-19 exposures, sick contacts or + testing. Patient states she has been using her nebulized treatments and they do not seem to be working. Patient traveled to [place] and [place] recently and came back home on 10/22/2019. Since then she has been having shortness of breath not improving. WBC 11.9, chest x-ray showed no acute pulmonary process. Other laboratory data within normal limits. T-max was 99.4 on admission. Saturating well on room air. 11/07/2019 Patient is still complaining of cough. Shortness of breath did improve with breathing treatments and inhaler today afternoon. Does have exertional dyspnea and wheezing on examination. Patient has been afebrile otherwise. Repeat chest x-ray showed no acute cardiopulmonary process. Influenza a and B-. Covid 19 PCR was sent due to travel [place] of [place]. Denied any chest pain. No nausea vomiting or diarrhea. Tolerating oral diet. Patient is being continued on droplet and contact precautions. 11/08/2019 Patient is still complaining of shortness of breath and exertional dyspnea. No wheezing on examination. Patient has been afebrile. WBC count is 19.5 likely steroids contributing. Patient denied any complaints of chest pain. No nausea vomiting or diarrhea. Patient is being continued on droplet and contact precautions. 11/09 2019 Patient is still having significant cough and shortness of breath. No fever. WBC count came down to 11.9 today. No complaints of chest pain. Still feeling weak and lethargic. Able to tolerate oral diet. Currently being continued on antibiotics, DuoNeb's and albuterol inhalers. Covid 19 PCR is still pending. 11/10/2019 Patient is having exertional dyspnea and shortness of breath. Patient still feels generally weak and otherwise no complaints of headache or dizziness. Currently being continued on antibiotics DuoNeb's and albuterol inhalers. Covid 19 is negative. Anticipate discharge in next 24 hours. 11/11/2019 Patient's breathing status is better today. Able to ambulate in the room. No complaints of chest pain or shortness of breath. Pulmonary negative. Patient will be continued on tapering course of steroids and breathing treatments. Completed antibiotic course while in the hospital. Patient is being discharged home today. PHYSICAL EXAMINATION: Patient is lying in the bed comfortably, no acute distress, awake alert and oriented.. HEENT: Normocephalic. Neck is supple. Pupils reactive. Nostrils clear. Oral cavity is moist. Ears reveal no drainage. Neck reveals no JVD, carotid bruits, or thyromegaly. CHEST EXAMINATION: Trachea is central. Symmetrical expansion. Mild expiratory wheeze. Lung grullon clear to auscultation and percussion. CARDIAC: Normal S1, S2 with no gallops. No murmurs ABDOMEN: Soft. Bowel sounds normal. No organomegaly. No abdominal bruits. Extremities: reveal no edema. No clubbing or cyanosis Neurologically awake, alert, oriented x3 with well-coordinated movements. No focal deficits noted Skin: No rash or skin lesions. Psychiatric: Coperative. Nonsuicidal Musculoskeletal: No joint swelling or deformity. Normal range of motion. Discharge vitals reviewed. Patient Condition at Discharge: Stable Plan - Discharge Summary Discharge Rx Participant: No New Discharge Prescriptions: New Fluticasone Propionate 110 Mcg [Flovent 110 Mcg Inhaler (Bulk)] 2 puff INHALATION RT-BID #1 inhaler predniSONE See Taper PO DIRECTED #30 tab Albuterol Inhaler (Bulk) [Ventolin Hfa Inhaler (Bulk)] 2 puff INHALATION RT- QID PRN #1 inhaler PRN Reason: Shortness Of Breath Or Wheezing Azithromycin [Zithromax] 500 mg PO Q24H #3 tab Continue Albuterol Nebulized [Ventolin Nebulized] 2.5 mg INHALATION RT-Q8H PRN PRN Reason: Shortness Of Breath Omeprazole Magnesium [PriLOSEC OTC] 20 mg PO HS Menthol [Biofreeze] 1 applic TOPICAL DAILY PRN PRN Reason: hip pain Aspirin/Acetaminophen/Caffeine [Excedrin Migraine Caplet] 1 tab PO Q8H PRN PRN Reason: migraine headaches Discharge Medication List Albuterol Nebulized [Ventolin Nebulized] 2.5 mg INHALATION RT-Q8H PRN 11/06/19 [History] Aspirin/Acetaminophen/Caffeine [Excedrin Migraine Caplet] 1 tab PO Q8H PRN 11/06/19 [History] Menthol [Biofreeze] 1 applic TOPICAL DAILY PRN 11/06/19 [History] Omeprazole Magnesium [PriLOSEC OTC] 20 mg PO HS 11/06/19 [History] Albuterol Inhaler (Bulk) [Ventolin Hfa Inhaler (Bulk)] 2 puff INHALATION RT-QID PRN #1 inhaler 11/11/19 [Rx] Azithromycin [Zithromax] 500 mg PO Q24H #3 tab 11/11/19 [Rx] Fluticasone Propionate 110 Mcg [Flovent 110 Mcg Inhaler (Bulk)] 2 puff INHALATION RT-BID #1 inhaler 11/11/19 [Rx] predniSONE See Taper PO DIRECTED #30 tab 11/11/19 [Rx] Follow up Appointment(s)/Referral(s): Michelle Malcolm MD [Primary Care Provider] - 1-2 days (Call Tuesday for an appointment 1-2 days) Patient Instructions/Handouts: Asthma (DC) Activity/Diet/Wound Care/Special Instructions: No restrictions Discharge Disposition: HOME SELF-CARE
== END 2019-11-11 16:05 | disposition home or self-care (01) | DRG 203 ==
LOC: EC 11:06 → 6NMEDSUR 13:33 → 3SCARD 18:29
PROVIDERS: ADMIT Internal Medicine; ATTEND Internal Medicine
DX: J45.51 Severe persistent asthma with (acute) exacerbation (principal); Z20.828 Contact with and (suspected) exposure to other viral communicable diseases; G43.909 Migraine, unspecified, not intractable, without status migrainosus; F41.9 Anxiety disorder, unspecified; F32.9 Major depressive disorder, single episode, unspecified; M19.90 Unspecified osteoarthritis, unspecified site; K21.9 Gastro-esophageal reflux disease without esophagitis; M41.9 Scoliosis, unspecified; M70.52 Other bursitis of knee, left knee; M70.51 Other bursitis of knee, right knee; K58.9 Irritable bowel syndrome, unspecified; E66.9 Obesity, unspecified; Z68.34 Body mass index [BMI] 34.0-34.9, adult; Z79.899 Other long term (current) drug therapy; Z87.891 Personal history of nicotine dependence; Z87.01 Personal history of pneumonia (recurrent); Z90.49 Acquired absence of other specified parts of digestive tract; Z98.890 Other specified postprocedural states; Z88.8 Allergy status to other drugs, medicaments and biological substances; Z80.41 Family history of malignant neoplasm of ovary; Z82.49 Family history of ischemic heart disease and other diseases of the circulatory system
CPT/HCPCS: 36415; 71045; 80048; 80053; 83605; 84484; 85025; 87040; 87502; 93005; 94640; 96365; 96367; 96372; 99285